=== PATIENT | female | born 1985 | race Caucasian/White ===

== ENCOUNTER 2018-03-09 11:12 | Inpatient (IN) | payer BC ==
[2018-03-09] MEDS ORDERED: Dinoprostone* 10 MG VAG.SUPP VAGINAL ONE (11:39)
--- NOTE | 2018-03-09 12:10 | HP ---
General Information - Reason for Visit chronic hypertension, for ripening/induction - General Information Maternal Age: 32 Grav: 1 Para: 0 SAB: 0 IEA: 0 Estimated Due Date: 03/15/18 Determined By: Early Ultrasound Gestational Age in Weeks/Days: 39 w 1 d Maternal Blood Type and Rh: B Positive - Results this Serology/RPR Result: Non-Reactive Rubella Result: Immune HBsAg Result: Negative HIV Result: Negative GBS Culture Result: Negative Past Medical History Past Medical History Comment: Hypertension, on aldomet Hypothyroidism, on replacement Migraine - Antepartal Records Antepartal Records: Reviewed, Complicated by: - chronic hypertension, obesity Review of Systems Constitutional: Comfortable CV Complaint: No Respiratory: Shortness of Breath: No Gastrointestinal: No Nausea/Vomiting, Normal Bowel Movement Genitourinary: No Leaking Fluid Musculoskeletal: No Complaint Neurological: No Headache, No Visual Changes Movement: Normal Exam Allergies/Adverse Reactions: Allergies No Known Allergies Allergy (Verified 03/09/18 11:54) 156/99 98.1-98-20 - Measurements Height: 5 ft 8 in Weight: 265 lb Weight in lbs: 265.254985 Body Mass Index (BMI): 40.3 Pre- Weight: 249 lb Weight Gained This : 114 lbs and 0 ozs - Exam Breast: - - soft, no masses Extremities: Edema Heart: Normal Rhythm/Heart Sounds HEENT: No Significant Findings Reflexes: DTR 2+ Thyroid: No Thyromegaly - Abdominal Exam Abdomen Exam: Non-Tender - Ultrasound/Biophysical Profile Ultrasound Status: Not Done Targeted Exam Findings See L&D Outpatient Visit Provider Note for Findings: N/A Estimated Weight: 7 lbs Cervical Exam: Closed Effacement: 50% Station: -3 Presenting Part: Vertex Membrane Status: Intact EFM Findings - External Monitor Findings Baseline Heart Rate: 150 External Monitor Findings: Accelerations Present, No Pattern of Variable or Late Decelerations, Variability Moderate Contractions: None Assessment/Plan - Assessment IUP at 39 w 1 d, for ripening - Obstetrical Risk Factors Obstetrical Risk Factors: Chronic Hypertension - Plan Plan: Cervical Ripening - Cervidil placed a 1200 - Date/Time of Admission Date of Admission: 03/09/18 Time of Admission: 11:30
[2018-03-09 12:52] LABS: ABS Basophils 0 10^3/ul (0-0.2); ABS Eosinophils 0 10^3/ul (0-0.6); ABS Lymphocytes 1.5 10^3/ul (1.0-4.8); ABS Monocytes 0.9 10^3/ul (0-0.8); ABS Neutrophils 6.9 10^3/ul (1.5-7.7); ABS Nucleated RBC 0 10^3/ul; Eosinophil % 0.1 % (0-6); Hematocrit 35 % (35-47); Hemoglobin 12.5 g/dl (12.0-16.0); Lymphocyte % 16.6 % (25-47); Mean Corpuscular HGB Conc 36 g/dl (31-36); Mean Corpuscular Hemoglobin 31 pg (27-31); Mean Corpuscular Volume 87 fL (80-97); Mean Platelet Volume 8.7 um3 (7.4-10.4); Nucleated Red Blood Cells % 0; Platelet Count 123 10^3/ul (150-450); Red Blood Count 4.04 10^6/ul (4.00-5.40); Red Cell Distribution Width 15 % (10.5-15); White Blood Count 9.3 10^3/ul (3.5-10.8)
[2018-03-09 13:11] LABS: EGFR Non-African American 158.4 (>60)
[2018-03-09] MEDS ORDERED: Methyldopa TAB* 250 MG PO SCH (21:00)
[2018-03-09] MEDS: PTO: Methyldopa TAB* 250 MG PO SCH (21:41)
[2018-03-10] MEDS: Levothyroxine TAB* 50 MCG TAB PO SCH (06:45)
[2018-03-10] MEDS: Oxytocin in LR* 20 UNITS/1,000 ML BAG IVPB SCH (08:04)
[2018-03-10] MEDS: PTO: Methyldopa TAB* 250 MG PO SCH ×2 (09:16→21:57)
[2018-03-10] MEDS: Misoprostol TAB* 100 MCG PO SCH (22:12)
[2018-03-11] MEDS: Levothyroxine TAB* 50 MCG TAB PO SCH (06:38)
[2018-03-11] MEDS: Misoprostol TAB* 100 MCG PO SCH (06:46)
--- NOTE | 2018-03-11 07:51 | PN ---
Progress Note - Progress Note Date of Service: 03/11/18 SOAP: Subjective: [Pt reports that she slept well overnight. Denies UCs. Reports active FM. ] Objective: [FHR:120 by doppler No contractions Cervical exam: 1-2 cm/ 80%/ soft/ posterior/ -2 ] Assessment: [Primiparous pt being induced for primary HTN, 39 3/7 weeks gestation, cervix favorable with a Castañeda Score of 7 No evidence of acidemia] Plan: [Discussed options with pt including more cervical ripening, Ortega balloon and another trial of Pitocin. Recommended trial of Pitocin with Ortega bulb. Pt declines Ortega bulb at this time, may be open to it later if still needed. She will ambulate for a little while and then we will restart Pitocin. ]
[2018-03-11] MEDS: Oxytocin in LR* 20 UNITS/1,000 ML BAG IVPB SCH (08:44)
[2018-03-11] MEDS: PTO: Methyldopa TAB* 250 MG PO SCH ×2 (08:52→21:32)
--- NOTE | 2018-03-11 12:02 | PN ---
Progress Note - Progress Note Date of Service: 03/11/18 SOAP: Subjective: [Pt reports she is feeling a bit more discomfort, similar to what she felt yesterday while on Pitocin. Noticed it stronger while standing, so she is standing. ] Objective: [FHR 135 baseline, + accels, mod variability, no decels UCs difficult to monitor, [place] adjusted, 2-4minutes, 50-60 seconds, mild Pitocin at 13 mu/ min] Assessment: [Pitocin having some effect, still not in active labor. Pt coping well.] Plan: [Continue Pitocin induction. ]
--- NOTE | 2018-03-11 15:04 | PN ---
Progress Note - Progress Note Date of Service: 03/11/18 SOAP: Subjective: [Pt reports feeling more uncomfortable, still coping well. Feels flushed.] Objective: [FHR- 130, + accels, moderate variability, no decels, Cat I UC's- 2-3 minutes, 40-60, mild to moderate Cervical exam- 2-3cm/80%/ -2 Pitocin at 13 mu/ min BP's ranging from 134/62 to 157/98] Assessment: [Progressing into early labor, coping well. BPs elevated, but below critical. No evidence of acidemia. ] Plan: [Continue Pitocin induction. Monitor BP's hourly. ]
[2018-03-11] MEDS ORDERED: Acetaminophen TAB* 325 MG PO PRN (19:33)
--- NOTE | 2018-03-11 19:33 | PN ---
Progress Note - Progress Note Date of Service: 03/11/18 SOAP: Subjective: [Pt continues to feel uncomfortable with ctx. Cervical exam remained unchanged. Discussed options for proceeding, including continuing with Pitocin, trying Ortega bulb in addition, or taking a Pitocin break. Recommended trying Ortega bulb. Pt agreeable to plan. ] Objective: [Cervical exam: 2-3/ 80%/ -2 FHR- 130 baseline, mod variability, + accels, neg decels UC's-2-3 minutes, 60-70 seconds duration, mild Pitocin at 13 mu BP 154/84 ] Assessment: [Pt w/ BPs consistent with preexisting hypertension, on methyldopa BID Still not in active labor No evidence of acidemia] Plan: [Ortega balloon placed with 30 cc saline. Pt initially did not tolerate well, requested that it be removed. However, once 10 cc was removed she felt better and was willing to try again. 5 cc added back in. Will evaluate effect of Pitocin with Ortega bulb. If not in active labor this evening, will consider Pitocin break over night. ]
[2018-03-11] MEDS ORDERED: Acetaminophen TAB* 325 MG ONE (19:38)
--- NOTE | 2018-03-11 20:50 | PN ---
Progress Note - Progress Note Date of Service: 03/11/18 SOAP: Subjective: [Pt reports that she got up to use restroom and Ortega balloon fell out. Reports ctx feel the same as they have previously, crampy but tolerable. ] Objective: [Cervical exam: 3-4 cm, 80%, -2 FHR baseline 145, moderate variability, + accels, no decels UCs- Q 3-4 minutes, mild ] Assessment: [Pt making good progress, but still not in active labor No evidence of acidemia] Plan: [Initiated Pitocin break. Pitocin shut off, and pt informed that we can restart tonight after 1-2 hours if she is up for it, or we can wait until tomorrow morning. She is planning to shower, go for a walk and then decide. ]
[2018-03-12] MEDS: Levothyroxine TAB* 50 MCG TAB PO SCH (06:50)
--- NOTE | 2018-03-12 07:50 | PN ---
Progress Note - Progress Note Date of Service: 03/12/18 SOAP: Subjective: [Pt reports that she slept well tonight. Does not feel ctx. Reports active FM. Feeling quite ready to be done. ] Objective: [FHR- 130, + accels, no decels, moderate variability. Tracing poor d/t maternal position, body habitus, and movement Cervical exam- 2-3cm/ 60%/ -3/ posterior No ctx on monitor or felt by pt BP 129/59] Assessment: [Previous cervical assessment made immediately after Ortega balloon fell out. After a night of no contractions, dilation is now less than what was palpated yesterday. Pt's BPs appear to be stable. No evidence of acidemia. Not in labor. ] Plan: [Repeat CBC, Type and Screen, CMP, uric acid Restart low dose Pitocin Consider AROM if technically possible. Head is well applied to cervix. Discussed with pt. She is potentially open to this but would like to give Pitocin alone a few hours to try to work. ]
[2018-03-12 08:15] LABS: ABS Basophils 0 10^3/ul (0-0.2); ABS Eosinophils 0 10^3/ul (0-0.6); ABS Lymphocytes 1.4 10^3/ul (1.0-4.8); ABS Monocytes 0.7 10^3/ul (0-0.8); ABS Neutrophils 6.1 10^3/ul (1.5-7.7); ABS Nucleated RBC 0 10^3/ul; Eosinophil % 0.2 % (0-6); Hematocrit 36 % (35-47); Hemoglobin 12.6 g/dl (12.0-16.0); Lymphocyte % 17.2 % (25-47); Mean Corpuscular HGB Conc 36 g/dl (31-36); Mean Corpuscular Hemoglobin 31 pg (27-31); Mean Corpuscular Volume 87 fL (80-97); Mean Platelet Volume 8.8 um3 (7.4-10.4); Nucleated Red Blood Cells % 0; Platelet Count 131 10^3/ul (150-450); Red Blood Count 4.09 10^6/ul (4.00-5.40); Red Cell Distribution Width 14 % (10.5-15); White Blood Count 8.2 10^3/ul (3.5-10.8)
[2018-03-12 08:25] LABS: EGFR Non-African American 154.6 (>60); Uric Acid 5.5 mg/dL (2.3-6.6)
[2018-03-12] MEDS: PTO: Methyldopa TAB* 250 MG PO SCH ×2 (09:10→20:23)
--- NOTE | 2018-03-12 10:49 | PN ---
Progress Note - Progress Note Date of Service: 03/12/18 SOAP: Subjective: [Pt feeling better emotionally, ready to keep going. Reports ctx are feeling similar to yesterday in strength, but are less frequent. Reports active FM. ] Objective: [FHR- 140 baseline, + accels, no decels, moderate variability UC's 4-6 minutes, 60-80 sec, mild Pitocin at 13 mu/min ] Assessment: [Pitocin having some effect, still not in active labor No evidence of acidemia] Plan: [Will continue Pitocin for now, consider AROM vs stopping Pitocin and doing more misoprostol if Pitocin does not achieve desired effect. ]
--- NOTE | 2018-03-12 13:45 | PN ---
Progress Note - Progress Note Date of Service: 03/12/18 SOAP: Subjective: [Pt feeling very frustrated with the process. She was having only mild contractions with the Pitocin. Offered option of either breaking the water in an attempt to initiate active labor versus stopping the Pitocin and trying misoprostol. Pt was wondering about feasibility of discharge home with planned return in a couple days. Discussed with Dr. Salcedo. He would be willing to come and perform BPP to determine well being. ] Objective: [FHR Cat I BPs consistant with previous Labs WNL UCs mild] Assessment: [Pt on day 4 of IOL, still not in active labor. Evaluating options for proceeding from here. No evidence of acidemia. ] Plan: [Dr. Salcedo to evaluate pt and consult. Will make a plan from there. ]
[2018-03-12] MEDS ORDERED: Oxytocin in LR* 20 UNITS/1,000 ML BAG IVPB ONE (16:00)
[2018-03-12] MEDS ORDERED: Oxytocin in LR* 20 UNITS/1,000 ML BAG IVPB SCH (16:00)
--- NOTE | 2018-03-12 16:13 | PN ---
Progress Note - Progress Note Date of Service: 03/12/18 SOAP: Subjective: [Pt feeling well, ready to restart Pitocin. Reports continued clear fluid leaking. Reports active FM. ] Objective: [FHR-130 baseline, + accels, no decels, moderate variability Pt does not feel ctx BP- 137/65 ] Assessment: [ at 39 4/7 weeks gestation being induced for preexisting hypertension, no evidence of preeclampsia, no evidence of acidemia, with ruptured membranes , clear fluid. ] Plan: [Initiate high dose Pitocin per protocol Will consider internal monitoring PRN]
[2018-03-12] MEDS ORDERED: Promethazine INJ(RESTRICTED)* 25 MG/ML 1 ML VIAL IV ONE (20:12)
[2018-03-12] MEDS ORDERED: Promethazine INJ(RESTRICTED)* 25 MG/ML 1 ML VIAL ONE (20:12)
[2018-03-12] MEDS ORDERED: Nalbuphine* 10 MG/ML 1 ML VIAL ONE (20:12)
[2018-03-12] MEDS ORDERED: Nalbuphine* 10 MG/ML 1 ML VIAL IV ONE (20:13)
--- NOTE | 2018-03-12 20:41 | PN ---
Progress Note - Progress Note Date of Service: 03/12/18 SOAP: Subjective: [Pt feeling increased pressure and pain with ctx. Also reports shakiness and nausea. Pt requesting something to help with the pain. ] Objective: [FHR- 125 baseline, moderate variability, + accels, no decels UC's Q2-3, mild to moderate, 60 seconds Pitocin at 24 mu/ min Cervical exam deferred] Assessment: [Pt appears to be entering more active labor. Cervical exam deferred due to ruptured membranes. ] Plan: [Discussed options for pain relief with pt, including tub, IV pain meds, nitrous oxide and epidural. Pt prefers to try IV pain meds at this time. Nubain and Phenergan ordered. Continue Pitocin per protocol]
[2018-03-13] MEDS ORDERED: OBEPIDURAL* 250 ML EPIDURAL ONE (00:56)
--- NOTE | 2018-03-13 01:06 | PN ---
Progress Note - Progress Note Date of Service: 03/13/18 SOAP: Subjective: [Got some sleep after nubain/phenergan. Has been changing positions, most recently on yoga ball. Pt reports feeling contractions are getting stronger, not coping and would like to consider pain medication] Objective: [Pit @ 24 BP 148/83, afebrile VE 7cm/100/0 UCs Q 2-3 min FHT 120, difficult to trace d/t maternal habitus, position] Assessment: [, IOL for CHTN, in active labor, ruptured membranes, difficult monitoring, no evidence metabolic acidemia] Plan: [Patient desires MENDEZ after discussion of options including MENDEZ, nitrous, repeat nubain/phenergan. Anesthesia notified.]
[2018-03-13] MEDS ORDERED: Phenylephrine IV* 40 MCG/ML 10 ML SYRINGE IV PUSH PRN (01:38)
[2018-03-13] MEDS ORDERED: EPHEDrine (Pressors)* 50 MG/ML VIAL IV PUSH PRN (01:38)
[2018-03-13] MEDS ORDERED: Sodium Citrate/Citric Acid* 15 ML UDC PO PRN (01:38)
[2018-03-13] MEDS ORDERED: Famotidine TAB* 20 MG PO PRN (01:38)
[2018-03-13] MEDS ORDERED: OBEPIDURAL* 250 ML EPIDURAL SCH (02:00)
[2018-03-13] MEDS ORDERED: ceFOXitin 2 GM IVPREMIX* 2 GM/50 ML BAG IVPB ONE (13:27)
[2018-03-13] MEDS ORDERED: OXYTOCIN* 10 UNITS/ML 1 ML VIAL ONE (15:13)
[2018-03-13] MEDS ORDERED: Bupivacaine-MPF SPINAL* 7.5 MG/ML - 2ML AMP ONE (15:13)
[2018-03-13] MEDS ORDERED: Lidocaine 2% PF * 5 ML VIAL ONE (15:13)
[2018-03-13] MEDS ORDERED: Ondansetron INJ* 2 MG/ML VIAL ONE (15:13)
[2018-03-13] MEDS ORDERED: Morphine INJ* 2 MG/ML 1 ML SYRINGE (TWO MG - NEW SYRINGE VERSION) IV PRN (15:24)
[2018-03-13] MEDS ORDERED: Naloxone* 0.4 MG/ML 1 ML VIAL IV PRN (15:24)
[2018-03-13] MEDS ORDERED: Ondansetron INJ* 2 MG/ML VIAL IV PRN (15:24)
[2018-03-13] MEDS ORDERED: oxyCODONE/Acetamin 5/325 MG* TAB PO PRN ×3 (15:24→16:22)
[2018-03-13] MEDS ORDERED: fentaNYL* 50 MCG/ML 2 ML VIAL (100 MCG VIAL) IV PRN (15:24)
[2018-03-13] MEDS ORDERED: Phenylephrine INJ* 10 MG/ML 1 ML VIAL (10 MG) ONE (15:31)
[2018-03-13] MEDS ORDERED: Dibucaine 1% 28.35 GM TUBE PR PRN (16:22)
[2018-03-13] MEDS ORDERED: Witch Hazel PAD* JAR TOPICAL PRN (16:22)
[2018-03-13] MEDS ORDERED: Glycerin ADULT SUPP PR PRN (16:22)
[2018-03-13] MEDS ORDERED: Acetaminophen TAB* 325 MG PO PRN (16:22)
[2018-03-13] MEDS ORDERED: Oxytocin in LR* 20 UNITS/1,000 ML BAG IVPB SCH (17:00)
[2018-03-13] MEDS: Docusate CAP* 100 MG PO SCH (20:35)
[2018-03-13] MEDS: PTO: Methyldopa TAB* 250 MG PO SCH (20:35)
[2018-03-13] MEDS: Ibuprofen TAB* 600 MG PO PRN (20:35)
[2018-03-13] MEDS: Simethicone TAB* 80 MG TAB.CHEW PO SCH (20:35)
[2018-03-14] MEDS: Ibuprofen TAB* 600 MG PO PRN ×3 (03:40→20:35)
[2018-03-14 07:32] LABS: ABS Basophils 0 10^3/ul (0-0.2); ABS Eosinophils 0 10^3/ul (0-0.6); ABS Lymphocytes 1.4 10^3/ul (1.0-4.8); ABS Neutrophils 9.9 10^3/ul (1.5-7.7); ABS Nucleated RBC 0 10^3/ul; Eosinophil % 0.1 % (0-6); Hematocrit 27 % (35-47); Hemoglobin 9.7 g/dl (12.0-16.0); Lymphocyte % 11.3 % (25-47); Mean Corpuscular HGB Conc 35 g/dl (31-36); Mean Corpuscular Hemoglobin 31 pg (27-31); Mean Corpuscular Volume 87 fL (80-97); Mean Platelet Volume 8.7 um3 (7.4-10.4); Nucleated Red Blood Cells % 0; Platelet Count 133 10^3/ul (150-450); Red Blood Count 3.15 10^6/ul (4.00-5.40); Red Cell Distribution Width 14 % (10.5-15); White Blood Count 12.4 10^3/ul (3.5-10.8)
[2018-03-14] MEDS: Levothyroxine TAB* 50 MCG TAB PO SCH (07:51)
[2018-03-14] MEDS: Ferrous Gluconate TAB* 324 MG TAB PO SCH ×2 (08:46→20:35)
[2018-03-14] MEDS: Simethicone TAB* 80 MG TAB.CHEW PO SCH ×3 (08:46→20:35)
[2018-03-14] MEDS: Docusate CAP* 100 MG PO SCH ×3 (08:47→20:35)
--- NOTE | 2018-03-14 09:55 | OP ---
OPERATIVE REPORT: DATE OF OPERATION: 03/13/18 DATE OF : 87 SURGEON: Meri Desai MD TOP AND TRIM WORKER: Eufemia Arredondo CNM ANESTHESIA: Spinal. PRE-OP DIAGNOSIS: Arrest of descent. POST-OP DIAGNOSIS: Arrest of descent, delivered. OPERATIVE PROCEDURE: Primary low-transverse section. FINDINGS: Revealed a vertex female infant with Apgars 8 at 1 minute and 9 at 5 minutes. Weight was 8 pounds 12 ounces. Nuchal cord x1. No meconium. Normal- appearing tubes and ovaries. Normal-appe aring placenta, manually extracted. Three- vessel cord intact. Normal uterine cavity without eviden ce of retained membranes or placental tissue. Extension on the left lower uterine segment to the lev el of the cervix. ESTIMATED BLOOD LOSS: 2000 cc. URINE OUTPUT: 125 cc of concentrated pink-tinged urine. FLUIDS: 1000 cc of crystalloid. COMPLICATIONS: None apparent. DISPOSITION: Stable to recovery room. DESCRIPTION OF PROCEDURE: The patient was placed in lithotomy supine. The abdomen was prepped and d raped in the sterile standard fashion after a second attempt of spinal anesthesia with good effect an d good regional anesthesia. After the prep and drape, anesthesia was tested to the appropriate level and the patient was identified with universal protocol for correct position, patient, and procedure. Incision was made 2 fingerbreadths above the pubic symphysis. This was carried down through to the fascia, the fascia was scored in the midline, extended laterally and superiorly Briggs scissors. Fasci a was from the rectus muscle superiorly and inferiorly with blunt and sharp dissection. Th e peritoneum was entered bluntly. Bladder blade was inserted. The bladder flap was created with marciano nt and sharp dissection. Incision was made in the lower uterine segment where the scalpel wounds was carried laterally and superiorly using bandage scissors. Infant was found to be wedged direct OP. The head was reduced and delivered. Skin incision extended with scalpel for head delivery to occur. Anterior posterior shoulder was delivered after reduction of nuchal cord. Cord was clamped and cut a nd the was handed off to the awaiting senior manufacturing supervisor. Appropriate cord blood was obtained. Stephanie centa was then manually extracted and noted to be 3-vessel cord intact. Densely adherent membranes t o the anterior uterine wall within the uterine cavity, however noted to be completed removed prior to closure of the hysterotomy site. There was an extension noted in the left lower uterine segment. T his was reapproximated with 0-Vicryl in a running fashion and imbricated stitch was then placed using 0-Vicryl in a [id number] fashion x2 for complete hemostasis of the extension. The hysterotomy site was reapproximated using 0-Vicryl x2 in a running fashion, first layer running locked, second la stacey running imbricated for complete hemostasis. The uterus was noted to have normal tubes and ovarie s. There were 3 small fibroids noted, 1 anterior approximately 3 cm size and 2 posterior less than a 2 cm a piece. The uterus was returned intraabdominally. Colic gutters were lavaged and hemostasis was assured. The hysterotomy site was noted to be hemostatic as well as the extension. The peritone um was then clamped with Lou and reapproximated using 3-0 Vicryl in a running fashion. Subfascial area was visualized, hemostasis assured, and the fascia itself was reapproximated using 0-Vicryl x2 i n a running fashion. Subcu was lavaged. Hemostasis assured with Bovie coagulation and Camper's fasc ia was then reapproximated with 3-0 Vicryl in an interrupted fashion. The skin was then reapproximat ed using 4-0 Monocryl in a subcuticular fashion. Mastisol and Steris were applied. All sponge, inst rument, and blade counts were correct throughout the case. The patient tolerated the procedure well and went to recovery room in stable condition. [id number]/[facility] #: [id number]
[2018-03-14] MEDS: PTO: Methyldopa TAB* 250 MG PO SCH ×2 (11:06→20:36)
[2018-03-15] MEDS: Ibuprofen TAB* 600 MG PO PRN ×3 (04:38→20:12)
[2018-03-15] MEDS: Levothyroxine TAB* 50 MCG TAB PO SCH (06:18)
[2018-03-15] MEDS: PTO: Methyldopa TAB* 250 MG PO SCH ×2 (08:58→20:12)
[2018-03-15] MEDS: Ferrous Gluconate TAB* 324 MG TAB PO SCH ×2 (08:59→20:12)
[2018-03-15] MEDS: Simethicone TAB* 80 MG TAB.CHEW PO SCH ×3 (08:59→20:12)
[2018-03-15] MEDS: Docusate CAP* 100 MG PO SCH ×3 (08:59→20:12)
[2018-03-16] MEDS: Ibuprofen TAB* 600 MG PO PRN (06:21)
[2018-03-16] MEDS: Levothyroxine TAB* 50 MCG TAB PO SCH (06:21)
[2018-03-16 07:51] VITALS: BP 146/70
[2018-03-16] MEDS: PTO: Methyldopa TAB* 250 MG PO SCH (09:06)
[2018-03-16] MEDS: Simethicone TAB* 80 MG TAB.CHEW PO SCH (09:06)
[2018-03-16] MEDS: Docusate CAP* 100 MG PO SCH (09:06)
[2018-03-16] MEDS: Ferrous Gluconate TAB* 324 MG TAB PO SCH (09:06)
== END 2018-03-16 11:40 | disposition home or self-care (01) | DRG 540 ==
LOC: MCHOBOUT 11:12 → MCHOB 11:46
PROVIDERS: ADMIT Midwife; ATTEND Midwife
PROC: 10D00Z1 Extraction of Products of Conception, Low, Open Approach (ICD-10-PCS; principal; 2018-03-15)
PROC: 10907ZC Drainage of Amniotic Fluid, Therapeutic from Products of Conception, Via Natural or Artificial Opening (ICD-10-PCS; 2018-03-15)
PROC: 3E0P7VZ Introduction of Hormone into Female Reproductive, Via Natural or Artificial Opening (ICD-10-PCS; 2018-03-15)
PROC: 4A1HXCZ Monitoring of Products of Conception, Cardiac Rate, External Approach (ICD-10-PCS; 2018-03-15)
PROC: 0U7C7ZZ Dilation of Cervix, Via Natural or Artificial Opening (ICD-10-PCS; 2018-03-15)
DX: O10.92 Unspecified pre-existing hypertension complicating childbirth (principal); Z68.41 Body mass index [BMI] 40.0-44.9, adult; O99.284 Endocrine, nutritional and metabolic diseases complicating childbirth; E03.9 Hypothyroidism, unspecified; O99.214 Obesity complicating childbirth; Z3A.39 39 weeks gestation of pregnancy; Z37.0 Single live birth; O69.81X0 Labor and delivery complicated by cord around neck, without compression, not applicable or unspecified; O62.1 Secondary uterine inertia; O90.81 Anemia of the puerperium
CPT/HCPCS: 36415; 80053; 84550; 85025; 86850; 86900; 86901; A9270-GY; J0694; J2300; J2405; J2550; J2590; S0191

== ENCOUNTER 2018-06-05 09:30 | Emergency (ER) | payer BC ==
[2018-06-05] MEDS ORDERED: Morphine VIAL* 4 MG/ML VIAL (1 ml vial) IV ONE (09:55)
[2018-06-05] MEDS ORDERED: Ondansetron INJ* 2 MG/ML VIAL IV ONE (09:55)
--- NOTE | 2018-06-05 10:02 | ED ---
Abdominal Pain/Female - HPI Summary HPI Summary: The pt is a 33 y/o female presenting to [facility] c/o RUQ pain since yesterday around 1600 hrs. She was seated in a recliner holding her baby when the pain rated 10/10 in severity started. She notes nausea and loss of appetite but denies back pain. Yesterday the pt ate lunch normally at [employer] but had decreased appetite by dinner time. The pain reduced to a severity of 6/10 by 0600hrs. It is aggravated by eating. - History of Current Complaint Chief Complaint: EDAbdPain Stated Complaint: ABD PAIN Time Seen by Provider: 06/05/18 09:54 Hx Obtained From: Patient, Family/Family Psychologist Onset/Duration: Lasting Days - 1 day, Still Present Timing: Constant Severity Initially: Severe - 10/10 Severity Currently: Moderate Pain Intensity: 6 Pain Scale Used: 0-10 Numeric Location: Discrete At: RUQ Radiates: No Character: Sharp Aggravating Factor(s): Food Alleviating Factor(s): Nothing Associated Signs and Symptoms: Positive: Decreased Appetite, Nausea Allergies/Adverse Reactions: Allergies Allergy/AdvReac Type Severity Reaction Status Date / Time No Known Allergies Allergy Verified 06/05/18 09:37 PMH/Surg Hx/FS Hx/Imm Hx Previously Healthy: No Endocrine/Hematology History: Reports: Hx Thyroid Disease - levothyroxine Cardiovascular History: Reports: Hx Hypertension - chronic on meds Respiratory History: Denies: Hx Asthma Sensory History: Denies: Hx Deafness Psychiatric History: Reports: Hx Anxiety, Hx Depression, 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 - Cancer History Cancer Type, Location and Year: None reported - Surgical History Surgery Procedure, Year, and Place: Infectious Disease History: No Infectious Disease History: Denies: Traveled Outside the [place] in Last 30 Days - Family History Known Family History: Positive: Other - Diverticulitis - Social History Occupation: Employed Full-time Lives: With Family Alcohol Use: None Substance Use Type: Reports: None Substance Use 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 Hx Tobacco Use: No Smoking Status (MU): Never Smoked Tobacco Type: Cigarettes Length of Time of Smoking/Using Tobacco: years Have You Smoked in the Last Year: No Review of Systems Gastrointestinal: Other - Positive: Loss of appetite Positive: Abdominal Pain, Nausea Musculoskeletal: Negative - Back pain All Other Systems Reviewed And Are Negative: Yes Physical Exam - Summary Physical Exam Summary: Appearance: Well-appearing, Well-nourished, lying in bed comfortably Skin: Warm, dry, no obvious rash Eyes: sclera anicteric, no conjunctival pallor ENT: mucous membranes moist, pharynx appears normal Neck: Supple, nontender Respiratory: Clear to auscultation, no signs of respiratory distress Cardiovascular: Normal S1, S2. No murmurs. Normal distal pulses in tibial and radial bilaterally. Abdomen: RUQ tenderness with some rebound and guarding normal active bowel sounds present Musculoskeletal: Normal, Strength/ROM Intact Neurological: A&Ox3, awake and alert, mentation is normal, speech is fluent and appropriate Psychiatric: affect is normal, does not appear anxious or depressed Triage Information Reviewed: Yes Vital Signs On Initial Exam: Initial Vitals Temp Pulse Resp BP Pulse Ox 97 F 82 16 137/85 98 06/05/18 09:34 06/05/18 09:34 06/05/18 09:34 06/05/18 09:34 06/05/18 09:34 Vital Signs Reviewed: Yes Diagnostics - Vital Signs Vital Signs Temp Pulse Resp BP Pulse Ox 06/05/18 09:43 78 156/74 97 06/05/18 09:41 90 99 06/05/18 09:34 97 F 82 16 137/85 98 - Laboratory Result Diagrams: 06/05/18 10:07 06/05/18 10:07 Lab Statement: Any lab studies that have been ordered have been reviewed, and results considered in the medical decision making process. - Ultrasound No standard instances Ultrasound Interpretation Completed By: Radiologist - GALL BLADDER US IMPRESSION : 1. CHOLELITHIASIS WITHOUT EVIDENCE FOR ACUTE CHOLECYSTITIS. 2. DILATED COMMON BILE DUCT. The ED physician reviewed this radiology report. Re-Evaluation - Re-Evaluation First Eval Re-Evaluation Time: 13:08 Change: Improved - The pt reports that the pain has decreased after receiving medications Second Eval Re-Evaluation Time: 13:17 Change: Improved - The pt agrees to be admitted Third Eval Re-Evaluation Time: 13:25 Change: Improved - The pt declined admission and requests to be discharged Abdominal Pain Fem Course/Dx - Course Course Of Treatment: A 33 year-old F presents to the ED with a CC of RUQ pain since yesterday around 1600 hrs. She notes nausea and loss of appetite but denies back pain. A physical exam revealed RUQ tenderness with some rebound and guarding. A gall bladder US reveals a dilated common bile duct without evidence for cholelithiasis. In the ED course, pt was given N.s 0.9% 2000ml IV and Ondansetron 8 mg IV which improved the symptoms. The pt declines Morphine because she is . I discussed the care of the pt with Dr. Shields- surgeon who recommended admitting the pt for further monitoring.Eventually the pt declined admission. Patient will be discharged with a final Dx of biliary colic. Pt is agreeable with this plan. Allergies noted. - Diagnoses Provider Diagnoses: Biliary colic - Provider Notifications Discussed Care Of Patient With: Greg Shields - General surgeon Time Discussed With Above Provider: 13:13 Instructed by Provider To: Other - 13:13- Dr. Shields agreed to admit the pt 13: 20 -Dr. Francisco Huizar MD - Hospitalist agreed to admit the pt 13:39- Dr. Shields agreed to see the pt in his office tomorrow Discharge - Sign-Out/Discharge Documenting (check all that apply): Patient Departure - Discharge Plan Condition: Guarded Disposition: HOME Patient Education Materials: Biliary Colic (ED) Referrals: Greg Shields MD [Medical Doctor] - Additional Instructions: Dr. Shields would like you to have repeat blood work drawn in the morning, and to see Dr. Mendoza, one of his partners, for a recheck at 10:30 and to go over what the next steps will be for your gall bladder problem. If you can come to the lab by 9 am that should give the lab time to run the tests before your appt. I would not be surprised if your pain recurs tonight, and if it does, or you can't keep anything down, you should return here as we discussed. - Attestation Statements Document Initiated by Scribe: Yes Documenting Scribe: Alma Rosa Martínez Provider For Whom Rose Mary is Documenting (Include Credential): Dr. Tay Smyth MD Scribe Attestation: I, Alma Rosa Martínez , scribed for Dr. Tay Smyth MD on 06/05/18 at 1458.
[2018-06-05 10:21] LABS: ABS Basophils 0 10^3/ul (0-0.2); ABS Eosinophils 0 10^3/ul (0-0.6); ABS Lymphocytes 0.9 10^3/ul (1.0-4.8); ABS Monocytes 0.4 10^3/ul (0-0.8); ABS Neutrophils 4.2 10^3/ul (1.5-7.7); ABS Nucleated RBC 0 10^3/ul; Eosinophil % 0.3 % (0-6); Hematocrit 41 % (35-47); Hemoglobin 14.3 g/dl (12.0-16.0); Lymphocyte % 16.4 % (25-47); Mean Corpuscular HGB Conc 35 g/dl (31-36); Mean Corpuscular Hemoglobin 30 pg (27-31); Mean Corpuscular Volume 85 fL (80-97); Mean Platelet Volume 7.5 fL (7.4-10.4); Nucleated Red Blood Cells % 0.3; Platelet Count 228 10^3/ul (150-450); Red Blood Count 4.84 10^6/ul (4.00-5.40); Red Cell Distribution Width 15 % (10.5-15); White Blood Count 5.6 10^3/ul (3.5-10.8)
[2018-06-05] MEDS: NS 0.9% 1000 ML* 2,000 ML IV ONE ×2 (10:58→10:59)
[2018-06-05 11:40] LABS: Urine Appearance Clear; Urine Blood Negative (Negative); Urine Color Yellow; Urine Ketones Negative (Negative); Urine Protein Negative (Negative); Urine Red Blood Cell Trace(0-2/hpf) (Absent); Urine Specific Gravity 1.002 (1.010-1.030); Urine Urobilinogen Negative (Negative); Urine White Blood Cell Trace(0-5/hpf) (Absent)
[2018-06-05 14:08] VITALS: BP 116/76
== END 2018-06-05 14:06 | disposition home or self-care (01) ==
LOC: ED 09:30
DX: K80.50 Calculus of bile duct without cholangitis or cholecystitis without obstruction (principal); E07.9 Disorder of thyroid, unspecified; I10 Essential (primary) hypertension
CPT/HCPCS: 36415; 76705; 80053; 81003; 81015; 83690; 84702; 85025; 87086; 96361; 96374; 99283; J2270; J2405

== ENCOUNTER 2018-06-06 02:36 | Emergency (ER) | payer BC ==
[2018-06-06] MEDS ORDERED: Metoclopramide IV* 5 MG/ML 2 ML VIAL IV ONE (03:01)
[2018-06-06] MEDS ORDERED: NS 0.9% 1000 ML* 1,000 ML IV ONE (03:01)
--- NOTE | 2018-06-06 03:01 | ED ---
Abdominal Pain/Female - HPI Summary HPI Summary: Patient is a 33 y/o F w/ c/o epigastric abdominal pain onsetting 0130 today. She was seen at [facility] 06/04/18 and was discharged to home. During ED visit two days ago, patient was noted to have elevated liver enzymes and gallstones. Patient notes that pain subsided by itself while in ED. She states that she was instructed to return to ED if pain resumed, which it did. Patient endorses nausea, denies vomiting. Patient reports that she has surgical consult appointment today at 0900. She claims voluntary limited food intake in the past day. On triage, pain is rated 7/10, nothing is reported to aggravate/alleviate Sx. Home medications and allergies are reviewed. - History of Current Complaint Chief Complaint: EDAbdPain Stated Complaint: ABD PAIN Hx Obtained From: Patient Onset/Duration: Lasting Hours - current episode onset 0130, Lasting Days - patient seen at [facility] two days ago for same Sx, Still Present Timing: Constant Severity Currently: Severe - 7/10 Pain Intensity: 7 Pain Scale Used: 0-10 Numeric - 7/10 Location: Epigastric Aggravating Factor(s): Nothing Alleviating Factor(s): Nothing Associated Signs and Symptoms: Positive: Nausea. Negative: Vomiting Allergies/Adverse Reactions: Allergies Allergy/AdvReac Type Severity Reaction Status Date / Time No Known Allergies Allergy Verified 06/06/18 02:43 Home Medications: Home Medications Labetalol TAB* 100 mg PO BID 06/06/18 [History Confirmed 06/06/18] Norethindrone [Norlyda] 0.35 mg PO DAILY 06/06/18 [History Confirmed 06/06/18] PMH/Surg Hx/FS Hx/Imm Hx Endocrine/Hematology History: Reports: Hx Thyroid Disease - levothyroxine Cardiovascular History: Reports: Hx Hypertension - chronic on meds Respiratory History: Denies: Hx Asthma Sensory History: Denies: Hx Deafness Psychiatric History: Reports: Hx Anxiety, Hx Depression, 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 - Cancer History Cancer Type, Location and Year: None reported - Surgical History Surgery Procedure, Year, and Place: Infectious Disease History: No Infectious Disease History: Denies: Traveled Outside the [place] in Last 30 Days - Family History Known Family History: Positive: Other - Diverticulitis - Social History Alcohol Use: None Substance Use Type: Reports: None 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 Negative: Vomiting All Other Systems Reviewed And Are Negative: Yes Physical Exam - Summary Physical Exam Summary: VITAL SIGNS: Reviewed. GENERAL: Patient is a well-developed and nourished female who is lying comfortable in the stretcher. Patient is not in any acute respiratory distress. HEAD AND FACE: No signs of trauma. No ecchymosis, hematomas or skull depressions. No sinus tenderness. EYES: PERRLA, EOMI x 2, No injected conjunctiva, no nystagmus. EARS: Hearing grossly intact. Ear canals and tympanic membranes are within normal limits. MOUTH: Oropharynx within normal limits. NECK: Supple, trachea is midline, no adenopathy, no JVD, no carotid bruit, no c- spine tenderness, neck with full ROM. CHEST: Symmetric, no tenderness at palpation LUNGS: Clear to auscultation bilaterally. No wheezing or crackles. CVS: Regular rate and rhythm, S1 and S2 present, no murmurs or gallops appreciated. ABDOMEN: Soft, epigastric and RUQ tenderness. No signs of distention. No rebound no guarding, and no masses palpated. Bowel sounds are normal. EXTREMITIES: FROM in all major joints, no edema, no cyanosis or clubbing. NEURO: Alert and oriented x 3. No acute neurological deficits. Speech is normal and follows commands. SKIN: Dry and warm Triage Information Reviewed: Yes Vital Signs On Initial Exam: Initial Vitals Temp Pulse Resp BP Pulse Ox 98.3 F 76 18 146/77 97 06/06/18 02:40 06/06/18 02:40 06/06/18 02:40 06/06/18 02:40 06/06/18 02:40 Vital Signs Reviewed: Yes Diagnostics - Vital Signs Vital Signs Temp Pulse Resp BP Pulse Ox 06/06/18 02:40 98.3 F 76 18 146/77 97 - Laboratory Result Diagrams: 06/06/18 03:15 06/06/18 03:15 Lab Statement: Any lab studies that have been ordered have been reviewed, and results considered in the medical decision making process. - EKG 0520 Cardiac Rate: NL - rate of 70 BPM EKG Rhythm: Sinus Rhythm ST Segment: Non-Specific Re-Evaluation - Re-Evaluation First Eval Re-Evaluation Time: 04:05 Change: Unchanged Comment: Discussed elevated liver enzymes with patient, Dr. Shields will be called. She is willing to be admitted. Second Eval Re-Evaluation Time: 04:25 Change: Improved Comment: Patient states that she feels better and is pain free currently. Dr. Shields consult was discussed. As there is no GI coverage, she is agreeable with transfer to [place]. However, patient is worried about ambulance cost and will go to [place] via private car. Patient's mother will drive, patient is stable to travel in this manner. Transfer process intiated at this time. Third Eval Re-Evaluation Time: 04:58 Comment: Patient informed of acceptance of transfer. She will transfer to [place] when bed is available for patient. Abdominal Pain Fem Course/Dx - Course Course Of Treatment: Patient is a 33 y/o F w/ c/o epigastric abdominal pain onsetting 0130 today. She was seen at [facility] 06/04/18 and was discharged to home. During ED visit two days ago, patient was noted to have elevated liver enzymes and gallstones. Patient notes that pain subsided by itself while in ED. She states that she was instructed to return to ED if pain resumed, which it did. Patient endorses nausea, denies vomiting. Patient reports that she has surgical consult appointment today at 0900. She claims voluntary limited food intake in the past day. On physical exam, patient is noted to have RUQ and epigastric tenderness. During ED course, patient received fluids, morphine 4 mg IV ONCE, and reglan 10 mg IV ONCE. Labs showed beta <0.60, lipase 11, amylase 34, alk phos 207, ALT 479, AST 347, total bilirubin 4.3, lactic acid 0.4, glucose 100, WBC 5.1. UA showed 2+ leukocyte esterase, 2+ WBC. EKG showed normal sinus rhythm with rate of 70 BPM, non-specific ST-T changes. Discussed elevated liver enzymes with patient, Dr. Shields will be called. She is willing to be admitted. Patient's case was discussed with Dr. Shields [place] 0411. Dr. Shields states that patient needs ERCP and GI should be consulted. As there is no GI coverage, patient will need transfer. Dr. Shields consult was discussed with patient. As there is no GI coverage, she is agreeable with transfer to [place]. However, patient is worried about ambulance cost and will go to [place] via private car. Patient's mother will drive, patient is stable to travel in this manner. Patient also reports that she is not experiencing pain at this time. Dr. Kidd from [place] was consulted on patient's case. He accepts patient for admission and is agreeable with patient arriving via private car. Dx of choledocholithiasis, cholelithiasis. - Diagnoses Provider Diagnoses: Choledocholithiasis, Cholelithiasis - Provider Notifications Discussed Care Of Patient With: Greg Shields Time Discussed With Above Provider: 04:11 Instructed by Provider To: Other - Patient's case was discussed with Dr. Shields at 0411. Dr. Shields states that patient needs ERCP and GI should be consulted. 0454 - Dr. Kidd from [place] was consulted on patient's case. He accepts patient for admission and is agreeable with patient arriving via private car. Discharge - Sign-Out/Discharge Documenting (check all that apply): Patient Departure - transfer - Discharge Plan Condition: Good Disposition: TRANS HIGHER LVL OF CARE FAC Patient Education Materials: Cholecystitis (ED) Referrals: Osiel Perkins MD [Primary Care Provider] - - Billing Disposition and Condition Condition: GOOD Disposition: Trans Higher Lvl of Care Fac - Attestation Statements Document Initiated by Rose Mary: Yes Documenting Scribe: Jose E Shaw Provider For Whom Rose Mary is Documenting (Include Credential): Marti Harvey MD Scribe Attestation: Jose E Jones scribed for Marti Harvey MD on 06/06/18 at 0557. Scribe Documentation Reviewed: Yes Provider Attestation: The documentation as recorded by the Jose E mendiola accurately reflects the service I personally performed and the decisions made by me, Marti Harvey MD
[2018-06-06] MEDS ORDERED: Morphine VIAL* 4 MG/ML VIAL (1 ml vial) IV ONE (03:02)
[2018-06-06 03:31] LABS: ABS Basophils 0 10^3/ul (0-0.2); ABS Eosinophils 0 10^3/ul (0-0.6); ABS Lymphocytes 1.1 10^3/ul (1.0-4.8); ABS Monocytes 0.5 10^3/ul (0-0.8); ABS Neutrophils 3.4 10^3/ul (1.5-7.7); ABS Nucleated RBC 0 10^3/ul; Eosinophil % 0.9 % (0-6); Hematocrit 37 % (35-47); Hemoglobin 13.1 g/dl (12.0-16.0); Lymphocyte % 22.5 % (25-47); Mean Corpuscular HGB Conc 35 g/dl (31-36); Mean Corpuscular Hemoglobin 30 pg (27-31); Mean Corpuscular Volume 85 fL (80-97); Mean Platelet Volume 7.3 fL (7.4-10.4); Nucleated Red Blood Cells % 0.1; Platelet Count 205 10^3/ul (150-450); Red Blood Count 4.37 10^6/ul (4.00-5.40); Red Cell Distribution Width 15 % (10.5-15); White Blood Count 5.1 10^3/ul (3.5-10.8)
[2018-06-06 03:41] LABS: INR 0.99 (0.77-1.02)
[2018-06-06 03:50] LABS: EGFR Non-African American 98.6 (>60)
[2018-06-06 05:09] LABS: Urine Appearance Clear; Urine Blood Negative (Negative); Urine Color Yellow; Urine Ketones Negative (Negative); Urine Protein Negative (Negative); Urine Red Blood Cell Absent (Absent); Urine Specific Gravity 1.002 (1.010-1.030); Urine Urobilinogen Negative (Negative); Urine White Blood Cell 2+(11-20/hpf) (Absent)
[2018-06-06 06:00] VITALS: BP 146/88
== END 2018-06-06 06:00 | disposition short-term general hospital (02) ==
LOC: ED 02:36
DX: K80.50 Calculus of bile duct without cholangitis or cholecystitis without obstruction (principal); K80.20 Calculus of gallbladder without cholecystitis without obstruction; E07.9 Disorder of thyroid, unspecified; I10 Essential (primary) hypertension
CPT/HCPCS: 36415; 80053; 81003; 82150; 83605; 83690; 83735; 84702; 85025; 85610; 85730; 86140; 93005; 96374; 96375; 99283; J2270; J2765